=== PATIENT | female | born 1970 | race American Indian/Alaskan Native ===

== ENCOUNTER 2017-12-23 10:28 | Emergency (ER) | payer BC ==
[2017-12-23 10:42] VITALS: BMI 25.8
[2017-12-23] MEDS ORDERED: Morphine 4 mg/ml ISec IVP STA (12:10)
--- NOTE | 2017-12-23 12:24 | ED PDOC ---
Arrival/HPI - General Chief Complaint: Back Pain Time Seen by Provider: 12/23/17 10:54 Historian: Patient - History of Present Illness Narrative History of Present Illness (Text): 12/23/17 12:15 47yo female with pmhx of hypertension bib the EMS for complaint of lower back pain. Notes that pain started yesterday while getting off her truck yesterday. The by the bedside states she was seen at [facility] last night for the pain and was given Mobic, Prednisone 4mg and flexeril. States she took the Mobic yesterday and flexeril/prednisone this morning without relieve. Describes pain with any movement and pain is spasm like. states pain is worse this morning. She denies saddle anesthesia, focal weakness, abdominal pain, urinary/fecal incontinence, urinary symptoms, chest pain, ripping/tearing upper back pain, dizziness, any other complaint. Past Medical History - Provider Review Nursing Documentation Reviewed: Yes - Reproductive Menopause: No - Psychiatric Hx Substance Use: No - Anesthesia Hx Anesthesia: No Hx Anesthesia Reactions: No Hx Malignant Hyperthermia: No Family/Social History - Physician Review Nursing Documentation Reviewed: Yes Family/Social History: Unknown Family HX Smoking Status: Never Smoked Hx Alcohol Use: No Hx Substance Use: No Allergies/Home Meds Allergies/Adverse Reactions: Allergies No Known Allergies Allergy (Verified 12/23/17 10:43) Review of Systems - Physician Review All systems were reviewed & negative as marked: Yes - Review of Systems Constitutional: Normal Eyes: Normal ENT: Normal Respiratory: Normal Cardiovascular: Normal Gastrointestinal: Normal Genitourinary Female: Normal Musculoskeletal: Back Pain Skin: Normal Neurological: Normal Endocrine: Normal Hemo/Lymphatic: Normal Psychiatric: Normal Physical Exam Vital Signs Reviewed: Yes Vital Signs Temp Pulse Resp BP Pulse Ox 12/23/17 10:41 98.0 F 51 L 19 116/67 98 Temperature: Afebrile Blood Pressure: Normal Pulse: Regular Respiratory Rate: Normal Appearance: Positive for: Well-Appearing, Non-Toxic, Comfortable Pain Distress: Moderate Mental Status: Positive for: Alert and Oriented X 3 - Systems Exam Head: Present: Atraumatic, Normocephalic Pupils: Present: PERRL Extroacular Muscles: Present: EOMI Conjunctiva: Present: Normal Mouth: Present: Moist Mucous Membranes Neck: Present: Normal Range of Motion Respiratory/Chest: Present: Clear to Auscultation, Good Air Exchange. No: Respiratory Distress, Accessory Muscle Use Cardiovascular: Present: Regular Rate and Rhythm, Normal S1, S2. No: Murmurs Abdomen: No: Tenderness, Distention, Peritoneal Signs Back: Present: Midline Tenderness, Pain with Leg Raise (B/L leg). No: Paraspinal Tenderness Upper Extremity: Present: Normal Inspection. No: Cyanosis, Edema Lower Extremity: Present: Normal Inspection. No: Edema Neurological: Present: GCS=15, CN II-XII Intact, Speech Normal Skin: Present: Warm, Dry, Normal Color. No: Rashes Psychiatric: Present: Alert, Oriented x 3, Normal Insight, Normal Concentration Medical Decision Making ED Course and Treatment: 12/23/17 20:49 PT presented for stated history. she was in moderate pain on presentation. Toradol/Decadron was ordered LS CT On re evaluation she continued to complain of pain and morphine was ordered. Pt was neurologically intact. On r evaluation she was smiling states her pain improved significantly s/p medication LS CT - Negative Resutl was DW the pt. She was advised to continue with the medication she is taking for Ms pain. Tramadol rx was given for severe pain. - RAD Interpretation Radiology Orders: 12/23/17 11:03 LUMBAR SPINE W/O CONTRAST [CT] Stat - Medication Orders Current Medication Orders: Discontinued Medications Dexamethasone (Decadron Inj) 10 mg IVP STAT STA Stop: 12/23/17 11:05 Last Admin: 12/23/17 11:51 Dose: 10 mg IVP Administration Document 12/23/17 11:51 HI (Rec: 12/23/17 11:51 [id number] Charges for Administration # of IVP Administrations 1 Ketorolac Tromethamine (Toradol) 15 mg IVP STAT STA Stop: 12/23/17 11:05 Last Admin: 12/23/17 11:50 Dose: 15 mg MAR Pain Assessment Document 12/23/17 11:50 HI (Rec: 12/23/17 11:51 [place] [id number]) Pain Reassessment Is this a pain reassessment? No Sleep Is patient sleeping during reassessment? No Presence of Pain Presence of Pain Yes Location Upper or Lower Lower Pain Location Body Site Back Description Description Constant Intensity of Pain at present 7 Acceptable Level of Pain 1 IVP Administration Document 12/23/17 11:50 HI (Rec: 12/23/17 11:51 [id number] Charges for Administration # of IVP Administrations 1 Morphine Sulfate (Morphine) 4 mg IVP STAT STA Stop: 12/23/17 12:11 Disposition/Present on Arrival - Present on Arrival Any Indicators Present on Arrival: No History of DVT/PE: No History of Uncontrolled Diabetes: No Urinary Catheter: No History of Decub. Ulcer: No History Surgical Site Infection Following: None - Disposition Have Diagnosis and Disposition been Completed?: Yes Diagnosis: Back strain Disposition: HOME/ ROUTINE Disposition Time: 14:30 Patient Plan: Discharge Condition: STABLE Discharge Instructions (ExitCare): Muscle Strain, Low Back Pain in Adults Additional Instructions: Follow up with your Doctor/Orthopedist Return to ED for any new or worsening symptoms Prescriptions: RX: traMADol [Ultram] 50 mg PO Q6 #6 tab Referrals: Yao Aguilera MD [Primary Care Provider] - Follow up with primary Luis Felipe Bro DO [Staff Provider] - Follow up with primary Forms: [employer] (Azeri), WORK NOTE
--- NOTE | 2017-12-23 13:49 | CT ---
Date of service: 12/23/2017 PROCEDURE: CT Lumbar Spine without contrast HISTORY: back pain COMPARISON: None available. TECHNIQUE: Axial computed tomography images were obtained of the lumbar spine without the use of intravenous contrast. Coronal and sagittal reformatted images were created and reviewed. Radiation dose: Total exam DLP = 613 mGy-cm. This CT exam was performed using one or more of the following dose reduction techniques: Automated exposure control, adjustment of the mA and/or kV according to patient size, and/or use of iterative reconstruction technique. FINDINGS: VERTEBRAE: Unremarkable. No fracture. Normal alignment. DISCS/SPINAL CANAL/NEURAL FORAMINA: L1-2: Unremarkable. L2-3: Unremarkable. L3-4: Unremarkable. L4-5: Unremarkable. L5-S1: Unremarkable. PARASPINAL SOFT TISSUES: Unremarkable. OTHER FINDINGS: None. IMPRESSION: Unremarkable CT of Lumbar Spine.
[2017-12-23 15:36] VITALS: BP 122/72; PULSE 64; RESP 18; TEMP 98.3; O2SAT 99
== END 2017-12-23 15:33 | disposition home or self-care (01) ==
LOC: ED 10:28
DX: S39.012A Strain of muscle, fascia and tendon of lower back, initial encounter (principal); X58.XXXA Exposure to other specified factors, initial encounter
CPT/HCPCS: 72131; 96374; 96375; 99284; J1100; J1885; J2270